=== PATIENT | female | born 1995 | race African-American/Black ===

== ENCOUNTER 2025-01-07 12:12 | Emergency (ER) | payer BC, SELFPAY ==
[2025-01-07 12:18] VITALS: BP 127/80; PULSE 86; RESP 16; TEMP 36.3; O2SAT 97; BMI 41.1
--- NOTE | 2025-01-07 12:18 | ED_ITS ---
HPI - General Adult General Chief complaint: General Medical Stated complaint: cyst in pubic area Time Seen by Provider: 01/07/25 13:00 Source: patient Mode of arrival: ambulatory Limitations: no limitations History of Present Illness ED Provider: HPI narrative: 29-year-old female presenting with vaginal swelling worse over the past 1 month, no concern for , no concern for STI, also whitish vaginal discharge, has never had it before. Related Data Previous Rx's ?Medication ?Instructions ?Recorded metronidazole 500 mg tablet 500 mg PO BID 7 days #14 t abs 01/07/25 Allergies Allergy/AdvReac Type Severity Reaction Status Date / Time Penicillins Allergy Intermediate Hives Verified 01/07/25 12:21 Review of Systems Constitutional: Constitutional: Reports as per [facility] Social History Social History Advance Directives: No Advance Directives Information Provided: Yes Do you have a plan to hurt others: No Plan Physical Exam ED Exam Exam: Alert and oriented x4 Audiovisual Aids Technician present in the room Vaginal exam with normal labia majora and minora, there is a proximally 2 x 2 cm cystic structure at 07:00 introitus, consistent with Bartholin cyst Vital Signs: Vital Signs - 24 hr 01/07/25 12:18 01/07/25 14:28 Temperature 97.4 F Pulse Rate 86 79 Respiratory Rate 16 18 Blood Pressure 127/80 112/64 Pulse Oximetry 97 99 Oxygen Delivery Method Room Air Room Air BMI result Body Mass Index 41.1 Course Course Course Narrative: This is a Rapid Medical Examination (RME) performed by Giorgio Ku PA-C in triage. Full HPI, ROS, assessment and treatment plan per primary provider in the Main ED. Hx: 29 yo F here for eval of painful bump to internal vaginal region x1 mo, increasing in size. Plan: further eval in back Medications Administered Discontinued Medications Generic Name Dose Route Start Last Admin Trade Name Freq PRN Reason Stop Dose Admin Ketorolac Tromethamine 15 mg 01/07/25 13:23 01/07/25 13:29 Ketorolac Tromethamine 15 Mg/Ml Vial IM 01/07/25 13:24 15 mg ONCE ONE Administration Lidocaine HCl 10 ml 01/07/25 13:23 01/07/25 13:29 Lidocaine Hcl 1 % 20 Ml Vial INFILTRATI 01/07/25 13:24 10 ml ONCE ONE Administration Lidocaine/Epinephrine/Tetracaine 2 ml 01/07/25 13:23 01/07/25 13:28 Lidocaine/Racepinep/Tetracaine 3 Ml Gel.Pf.Jac TOPICAL 01/07/25 13:24 2 ml ONCE ONE Administration Procedures Abscess I/D Site: bartholin's gland Side (if applicable): right Local Anesthetic: lidocaine 1% Amount of anesthesia used (mL): 5 Technique: incised with blade Sent for culture/gram staining?: No Irrigation: No Packing used?: Word catheter Medical Decision Making Medical Decision Making MDM Narrative: 1:28 PM 01/07/2025 (Dr. Arben Zarate): Verbal consent for incision and drainage as well as word catheter placement obtained from the patient, I am going to apply lidocaine topically she will do herself and then inject the area, make a small incision in place or beckett catheter and I did confirm with Dr. Skaggs that this is still the recommended treatment, he confirmed and patient we will need to have the catheter in place for 4 weeks come back to the ER for removal unless there is any issues, she also has evidence of bacterial vaginosis no concern for STI, we will treat that as well 2:34 PM 01/07/2025 (Dr. Arben Zarate): With a crop production advisor in the room, patient was placed in lithotomy position, prior to that she had LET for about 20 minutes in the area, I administered 5 cc of lidocaine without epinephrine around the Bartholin cyst, small incision was made, viscous material removed, nonpurulent, and WORD catheter placed and balloon inflated with 2 cc of normal saline, patient tolerated procedure very well with minimal discomfort, and no bleeding Differential Diagnosis Differential Diagnoses: The differential diagnosis associated with the presentation includes (Abscess, cyst, STI, cellulitis) Consult Healthcare Provider Management of the patient was discussed with: Boy'S Adviser (Dr. Skaggs) Discharge Plan Discharge Clinical Impression: Bartholin gland cyst, Bacterial vaginosis Patient Disposition: Home, Self-Care Instructions: Bacterial Vaginosis (ED), Bartholin Cyst (ED) Additional Instructions: As discussed you were evaluated with Bartholin cyst and this was incised and small catheter was placed it has to stay in for 4 weeks so 02/06/2025 is when I would come back to emergency department or see your environmental sampler for catheter removal, if it falls out unfortunately at that point you don't have to have it replaced but the cyst will likely recur, if you do have a environmental sampler follow up with them because you may need additional procedures such as marsupialization or cautery of the cyst lining so it does not recur, also clinically you had whi colby vaginal discharge that is consistent with bacterial vaginosis I am starting her on metronidazole 500 mg twice a day for the next 1 week, do not drink alcohol while taking this medication that can make her very sick, Tylenol or Motrin as needed for pain, pelvic rest as discussed( no vaginal intercourse) until the catheter is removed, and as we have discussed there was any spiking fevers, worsening pain if you have any other concerns come back to the ER for re-evaluation If you are not able to tolerate the catheter and it is just causing your lot of discomfort you can come back to the ER earlier to have it deflated and removed and then follow up with the swatch paster During menstrual period use pads versus tampons Keep catheter end tucked in the vaginal vault as much as possible to prevent accidental dislodgment Prescriptions: New metronidazole 500 mg tablet 500 mg PO BID 7 Days Qty: 14 0RF Print Language: Latvian
[2025-01-07] MEDS: Lidocaine/Racepinep/Tetracaine 3 ML GEL.PF.APP 2 ML TOPICAL (13:28)
[2025-01-07] MEDS: Lidocaine HCl 1 % 20 ML VIAL 10 ML INFILTRATI (13:29)
[2025-01-07 14:28] VITALS: BP 112/64; PULSE 79; RESP 18; O2SAT 99
[2025-01-07 15:13] VITALS: BP 112/64; PULSE 79; RESP 18; TEMP 36.7; O2SAT 99
== END 2025-01-07 15:14 | disposition home or self-care (01) ==
PROVIDERS: Emergency Provider Emergency Medicine
DX: N75.0 Cyst of Bartholin's gland (principal); N76.0 Acute vaginitis
CPT/HCPCS: 56420; 96372; 99283; 99284; J1885; J2003